=== PATIENT | male | born 1950 | race Hispanic/Latino ===

== ENCOUNTER → 2018-03-25 | Outpatient (CLI) | payer OTHER ==
--- NOTE | 2018-03-26 07:33 | Diagnostic Imaging Report ---
PROCEDURE: Frontal and lateral views of the chest. COMPARISON: None. INDICATIONS: CHEST PAIN, PLEURISY FINDINGS: Lines/tubes: None. Lungs: The lungs are well inflated and clear. There is no evidence of pneumonia or pulmonary edema. Pleura: There is no pleural effusion or pneumothorax. Heart and mediastinum: The heart and the mediastinum are normal. Bones: No acute bony abnormality. Bilateral rotator cuff anchor sutures. IMPRESSION: No acute cardiopulmonary disease. Dictated by: Tan Swartz M.D. on 03/25/2018 at 16:58 Electronically approved by: Tan Swartz M.D. on 03/25/2018 at 16:58
== END ==
LOC: RAD 15:48
PROVIDERS: ATTEND Family Medicine
DX: R07.89 Other chest pain (principal); R09.1 Pleurisy
CPT/HCPCS: 71046

== ENCOUNTER 2020-08-31 11:18 | Emergency (ER) | payer MEDICARE ==
[~2020-08-31] VITALS: Ht 175.3 cm; Wt 81.2 kg
[2020-08-31 11:45] VITALS: BP 134/84
== END 2020-08-31 11:47 | disposition home or self-care (01) ==
LOC: ER 11:39
DX: U07.1 COVID-19 (principal); I10 Essential (primary) hypertension; E11.9 Type 2 diabetes mellitus without complications; E78.5 Hyperlipidemia, unspecified; K21.9 Gastro-esophageal reflux disease without esophagitis
CPT/HCPCS: 99283

== ENCOUNTER 2020-09-02 13:01 | Emergency (ER) | payer MEDICARE ==
[~2020-09-02] VITALS: Ht 175.3 cm; Wt 81.2 kg
[2020-09-02 14:14] VITALS: BP 136/72
== END 2020-09-02 13:50 | disposition home or self-care (01) ==
LOC: ER 13:21
DX: U07.1 COVID-19 (principal); R42 Dizziness and giddiness; I10 Essential (primary) hypertension; E11.9 Type 2 diabetes mellitus without complications; E78.5 Hyperlipidemia, unspecified; K21.9 Gastro-esophageal reflux disease without esophagitis
CPT/HCPCS: 99281

== ENCOUNTER → 2020-09-17 | Outpatient (CLI) | payer MEDICARE | LOC: RAD 11:04 | PROVIDERS: ATTEND Family Medicine | DX: J40 Bronchitis, not specified as acute or chronic (principal) | CPT/HCPCS: 71046 ==

== ENCOUNTER 2021-05-09 05:54 | Inpatient (IN) | payer MEDICARE ==
[2021-05-06 14:33] LABS: BASOPHILS % 0.4 % (0.0-1.0); EOSINOPHILS # (AUTO) 0.1 (0.0-0.4); EOSINOPHILS % 0.9 % (0.0-6.0); HEMATOCRIT 40.6 % (38.2-49.6); HEMOGLOBIN 13.4 g/dL (14.0-18.0); LYMPHOCYTES # (AUTO) 1.7 (1.0-3.2); LYMPHOCYTES % 22.1 % (18.0-39.1); MONOCYTES # (AUTO) 0.6 (0.2-0.8); MONOCYTES % 8.1 % (4.4-11.3); NEUTROPHILS # (AUTO) 5.4 (2.1-6.9); NEUTROPHILS % 68.2 % (38.7-80.0); PLATELET COUNT 151 x10e3/uL (140-360); RED BLOOD COUNT 4.32 x10e6/uL (4.3-5.7); RED CELL DISTRIBUTION WIDTH 13.3 % (11.7-14.4)
[2021-05-06 14:56] LABS: ANION GAP 17.9 mmol/L (8-16); CALCIUM 9.6 mg/dL (8.4-10.2); CREATININE, SERUM 1.39 mg/dL (0.72-1.25); POTASSIUM 3.9 mmol/L (3.5-5.1)
[~2021-05-09] VITALS: Ht 175.3 cm; Wt 84.8 kg
[~2021-05-09 05:54] MED LIST: ASPIRIN81 MG PO; CARDIZEM CD120 MG PO; CEFTRIAXONE 1 GM VIAL ONE; FINASTERIDE5 MG PO; FLOMAX0.4 MG PO; GENTAMICIN 80MG/NS 100 ML 200 ML IV ONE; GLIPIZIDE ER5 MG PO; LOSARTAN POTAS100 MG PO; METFORMIN HCL500 MG PO; OMEPRAZOLE40 MG PO; SIMVASTATIN20 MG PO; SODIUM CHLORIDE 0.9% 1000ML 1,000 ML ONE; SODIUM CHLORIDE 0.9% 50ML 50 ML ONE; TERAZOSIN HCL5 MG PO
[2021-05-09] MEDS ORDERED: DEXTROSE 5% 250ML 250 ML IV ONE (06:12)
[2021-05-09] MEDS ORDERED: B&O 60MG R/S 60 MG SUPP PR ONE (06:53)
[2021-05-09] MEDS ORDERED: IOPAMIDOL 300MG/ML 50ML INFUS..BTL IV ONE (06:54)
[2021-05-09] MEDS ORDERED: ACETAMINOPHEN/CODEINE 300MG - 30MG TAB PO PRN (08:45)
[2021-05-09] MEDS ORDERED: DIPHENHYDRAMINE HCL 25 MG CAP PO PRN (08:45)
[2021-05-09] MEDS ORDERED: ONDANSETRON HCL INJ 2MG/ML 2ML 2 MG/ML VIAL IV PRN (08:45)
[2021-05-09] MEDS ORDERED: FENTANYL CITRATE/PF 100MCG/2 ML INJ ONE ×3 (08:59→12:18)
[2021-05-09 09:09] LABS: BASOPHILS % 0.7 % (0.0-1.0); EOSINOPHILS # (AUTO) 0.1 (0.0-0.4); EOSINOPHILS % 2.7 % (0.0-6.0); HEMATOCRIT 41.2 % (38.2-49.6); HEMOGLOBIN 13.8 g/dL (14.0-18.0); LYMPHOCYTES # (AUTO) 1.5 (1.0-3.2); LYMPHOCYTES % 33.2 % (18.0-39.1); MEAN CORPUSCULAR HEMOGLOBIN 31.4 pg (28-32); MEAN CORPUSCULAR HGB CONC 33.5 g/dL (31-35); MEAN CORPUSCULAR VOLUME 93.6 fL (81-99); MONOCYTES # (AUTO) 0.3 (0.2-0.8); MONOCYTES % 7.7 % (4.4-11.3); NEUTROPHILS # (AUTO) 2.4 (2.1-6.9); PLATELET COUNT 137 x10e3/uL (140-360); RED CELL DISTRIBUTION WIDTH 13.3 % (11.7-14.4)
[2021-05-09 09:17] LABS: CALCIUM 8.8 mg/dL (8.4-10.2); CREATININE, SERUM 1.26 mg/dL (0.72-1.25)
[2021-05-09 09:46] VITALS: BP 124/64
[2021-05-09] MEDS ORDERED: CLONIDINE HCL 0.1 MG TAB PO PRN (10:00)
[2021-05-09] MEDS ORDERED: DEXTROSE 50% SYRINGE 50 ML IV PRN (10:30)
[2021-05-09] MEDS: SOD CHL 0.45%/POT CHL 20MEQ 1,000 ML IV SCH ×4 (10:36→22:42)
[2021-05-09] MEDS: INSULIN LISPRO 100 UNIT/1 ML 3ML VIAL SQ SCH ×3 (11:30→22:30)
[2021-05-09] MEDS ORDERED: MIDAZOLAM HCL 2 MG/2 ML VIAL ONE (12:18)
[2021-05-09] MEDS ORDERED: POVIDONE IODINE 0.05% 0.05 % ML PO ONE (12:44)
[2021-05-09] MEDS ORDERED: SEVOFLURANE INHAL SOLN 250 ML PEN BTL ONE (12:44)
[2021-05-09] MEDS ORDERED: PROPOFOL IV EMULSION 10 MG/ML 20 ML VIAL ONE (12:44)
[2021-05-09] MEDS ORDERED: ATROPINE SULFATE 1 MG/ML VIAL ONE (12:44)
[2021-05-09] MEDS ORDERED: LIDOCAINE HCL 2% LOCAL INJ 5 ML SDV VIAL INJ ONE (12:44)
[2021-05-09] MEDS ORDERED: DEXAMETHASONE SOD PHOS INJ 4 MG/ML VIAL ONE (12:44)
[2021-05-09] MEDS ORDERED: ONDANSETRON HCL INJ 2MG/ML 2ML 2 MG/ML VIAL ONE (12:44)
[2021-05-09] MEDS: DOCUSATE SODIUM 100 MG CAP PO SCH ×2 (13:28→17:46)
[2021-05-09 14:51] VITALS: BP 105/60
[2021-05-09] MEDS: B&O 60MG R/S 60 MG SUPP PR PRN ×2 (17:13→17:45)
[2021-05-09] MEDS: METFORMIN HCL 500 MG TAB PO SCH (17:46)
[2021-05-09] MEDS: MORPHINE SULFATE INJ 2 MG/ML SYR IV PRN (19:10)
[2021-05-09 20:00] VITALS: BP 116/54
[2021-05-09 20:30] VITALS: BP 116/54
[2021-05-10] VITALS (8 sets, daily range): BP systolic 90–121; BP diastolic 43–54
[2021-05-10 06:07] LABS: BASOPHILS % 0.2 % (0.0-1.0); EOSINOPHILS % 0.2 % (0.0-6.0); HEMATOCRIT 31.7 % (38.2-49.6); HEMOGLOBIN 10.5 g/dL (14.0-18.0); LYMPHOCYTES # (AUTO) 1.2 (1.0-3.2); LYMPHOCYTES % 10.2 % (18.0-39.1); MEAN CORPUSCULAR HEMOGLOBIN 31.3 pg (28-32); MEAN CORPUSCULAR HGB CONC 33.1 g/dL (31-35); MEAN CORPUSCULAR VOLUME 94.6 fL (81-99); MONOCYTES # (AUTO) 0.9 (0.2-0.8); MONOCYTES % 7.8 % (4.4-11.3); NEUTROPHILS # (AUTO) 9.8 (2.1-6.9); NEUTROPHILS % 81.3 % (38.7-80.0); PLATELET COUNT 135 x10e3/uL (140-360); RED BLOOD COUNT 3.35 x10e6/uL (4.3-5.7); RED CELL DISTRIBUTION WIDTH 13.2 % (11.7-14.4)
[2021-05-10 06:22] LABS: ANION GAP 10.4 mmol/L (8-16); CALCIUM 8.7 mg/dL (8.4-10.2); CREATININE, SERUM 0.95 mg/dL (0.72-1.25); POTASSIUM 4.4 mmol/L (3.5-5.1)
[2021-05-10] MEDS: INSULIN LISPRO 100 UNIT/1 ML 3ML VIAL SQ SCH ×4 (07:30→19:58)
[2021-05-10] MEDS: GLIPIZIDE 2.5 MG TABCR PO SCH (08:00)
[2021-05-10] MEDS: METFORMIN HCL 500 MG TAB PO SCH ×2 (08:00→17:15)
[2021-05-10] MEDS: SOD CHL 0.45%/POT CHL 20MEQ 1,000 ML IV SCH ×3 (09:11→20:45)
[2021-05-10] MEDS: DOCUSATE SODIUM 100 MG CAP PO SCH ×2 (09:11→17:15)
[2021-05-10] MEDS: CEFTRIAXONE 1 GM in SODIUM CHLORIDE 0.9% 50ML 50 ML IV SCH (09:11)
[2021-05-10] MEDS: PHENAZOPYRIDINE HCL 100 MG TAB PO PRN (13:01)
[2021-05-10] MEDS: B&O 60MG R/S 60 MG SUPP PR PRN (20:45)
[2021-05-10] MEDS: MORPHINE SULFATE INJ 2 MG/ML SYR IV PRN (23:10)
[2021-05-11] VITALS: BP 118/52
[2021-05-11] MEDS: PHENAZOPYRIDINE HCL 100 MG TAB PO PRN ×2 (00:33→08:57)
[2021-05-11 04:00] VITALS: BP 101/51
[2021-05-11 05:13] LABS: BASOPHILS % 0.1 % (0.0-1.0); EOSINOPHILS # (AUTO) 0.1 (0.0-0.4); EOSINOPHILS % 0.5 % (0.0-6.0); HEMATOCRIT 29.2 % (38.2-49.6); HEMOGLOBIN 9.7 g/dL (14.0-18.0); MEAN CORPUSCULAR HEMOGLOBIN 31.3 pg (28-32); MEAN CORPUSCULAR HGB CONC 33.2 g/dL (31-35); MEAN CORPUSCULAR VOLUME 94.2 fL (81-99); MONOCYTES # (AUTO) 0.8 (0.2-0.8); MONOCYTES % 7.7 % (4.4-11.3); NEUTROPHILS # (AUTO) 7.3 (2.1-6.9); NEUTROPHILS % 71.2 % (38.7-80.0); PLATELET COUNT 108 x10e3/uL (140-360); RED CELL DISTRIBUTION WIDTH 13.6 % (11.7-14.4)
[2021-05-11] MEDS: MORPHINE SULFATE INJ 2 MG/ML SYR IV PRN (05:17)
[2021-05-11 05:34] LABS: CALCIUM 8.3 mg/dL (8.4-10.2); CREATININE, SERUM 0.93 mg/dL (0.72-1.25)
[2021-05-11] MEDS: INSULIN LISPRO 100 UNIT/1 ML 3ML VIAL SQ SCH ×3 (07:30→17:26)
[2021-05-11] MEDS: METFORMIN HCL 500 MG TAB PO SCH ×2 (08:00→17:00)
[2021-05-11] MEDS: GLIPIZIDE 2.5 MG TABCR PO SCH (08:00)
[2021-05-11 08:12] VITALS: BP 114/55
[2021-05-11] MEDS: SOD CHL 0.45%/POT CHL 20MEQ 1,000 ML IV SCH ×2 (08:45→16:45)
[2021-05-11] MEDS: DOCUSATE SODIUM 100 MG CAP PO SCH ×2 (09:00→17:00)
[2021-05-11] MEDS: CEFTRIAXONE 1 GM in SODIUM CHLORIDE 0.9% 50ML 50 ML IV SCH (09:00)
[2021-05-11 09:10] VITALS: BP 114/55
[2021-05-11 11:36] VITALS: BP 105/52
[2021-05-11 15:15] VITALS: BP 102/73
[2021-05-11] MEDS ORDERED: TYLENOL 3 PO (18:51)
[2021-05-11] MEDS ORDERED: LEVOFLOXACIN250 MG PO (18:51)
== END 2021-05-11 19:31 | disposition home or self-care (01) | DRG 713 ==
LOC: OR 05:54 → PACU V 08:58 → MED/SURG 09:36
PROVIDERS: ADMIT Internal Medicine; ATTEND Internal Medicine
PROC: BT141ZZ Fluoroscopy of Kidneys, Ureters and Bladder using Low Osmolar Contrast (ICD-10-PCS; principal; 2021-05-09 07:00)
PROC: 0V508ZZ Destruction of Prostate, Via Natural or Artificial Opening Endoscopic (ICD-10-PCS; 2021-05-09 07:00)
DX: N40.1 Benign prostatic hyperplasia with lower urinary tract symptoms (principal); N13.8 Other obstructive and reflux uropathy; N13.30 Unspecified hydronephrosis; N17.9 Acute kidney failure, unspecified; E11.9 Type 2 diabetes mellitus without complications; I10 Essential (primary) hypertension; R39.14 Feeling of incomplete bladder emptying; K21.9 Gastro-esophageal reflux disease without esophagitis; Z86.16 Personal history of COVID-19
CPT/HCPCS: 36415; 71046; 74420; 80048; 82948; 83735; 85025; 93005; C1758; J0461; J0696; J1100; J1580; J2001; J2250; J2270; J2405; J3010; J7030; J7070

== ENCOUNTER 2023-02-23 12:17 | Observation (INO) | payer MEDICARE, OTHER ==
[~2023-02-23] VITALS: Ht 175.3 cm; Wt 79.8 kg
[~2023-02-23 12:17] MED LIST changes: +BIOTIN800 MCG PO; +CALCIUM ACETAT667 MG PO; +CANDICIDAL CAP1 EACH PO; -CEFTRIAXONE 1 GM VIAL ONE; -GENTAMICIN 80MG/NS 100 ML 200 ML IV ONE; +GINKGO BILOBA125 MG PO; +GLUCOSAMIN-CHO1 EACH PO; +LEVOFLOXACIN250 MG PO; +LOSARTAN-HCTZ1 EAC2 PO; +NAMENDA10 MG PO; +OMEGA 3 FISH O1 EACH PO; +OXYBUTYNIN CHLOR5 MG PO; +SAW PALMETTO 1160 MG PO; -SODIUM CHLORIDE 0.9% 1000ML 1,000 ML ONE; -SODIUM CHLORIDE 0.9% 50ML 50 ML ONE; +TYLENOL 3 PO; +VITAMIN B-121000 MCG PO; +VITAMIN C1000 MG PO; +VITAMIN D3 COM1 EACH PO; +VITAMIN E400 UNI1 PO; +[UNRECOGNIZED DRUG - OTHER] PO
[2023-02-23 12:59] LABS: BASOPHILS % 0.7 % (0.0-1.0); EOSINOPHILS % 0.4 % (0.0-6.0); HEMATOCRIT 39.9 % (38.2-49.6); HEMOGLOBIN 13.3 g/dL (14.0-18.0); LYMPHOCYTES # (AUTO) 0.9 (1.0-3.2); LYMPHOCYTES % 19.8 % (18.0-39.1); MEAN CORPUSCULAR HEMOGLOBIN 31.8 pg (28-32); MEAN CORPUSCULAR HGB CONC 33.3 g/dL (31-35); MEAN CORPUSCULAR VOLUME 95.5 fL (81-99); MONOCYTES # (AUTO) 0.4 (0.2-0.8); NEUTROPHILS # (AUTO) 3.2 (2.1-6.9); NEUTROPHILS % 69.7 % (38.7-80.0); PLATELET COUNT 127 x10e3/uL (140-360); RED BLOOD COUNT 4.18 x10e6/uL (4.3-5.7); RED CELL DISTRIBUTION WIDTH 12.6 % (11.7-14.4)
[2023-02-23 13:04] LABS: ALBUMIN 4.1 g/dL (3.5-5.0); ALBUMIN/GLOBULIN RATIO 1.4 (0.8-2.0); ANION GAP 14.4 mmol/L (8-16); CALCIUM 9.1 mg/dL (8.4-10.2); CREATININE, SERUM 1.04 mg/dL (0.72-1.25); POTASSIUM 3.4 mmol/L (3.5-5.1)
[2023-02-23] MEDS ORDERED: ONDANSETRON HCL INJ 2MG/ML 2ML 2 MG/ML VIAL IV PRN (14:00)
[2023-02-23] MEDS ORDERED: SODIUM CHLORIDE FLUSH 10 ML SYR INJ PRN (14:00)
[2023-02-23] MEDS ORDERED: DEXTROSE 50% SYRINGE 50 ML IV PRN (15:15)
[2023-02-23 15:40] LABS: CLARITY,URINE CLEAR (CLEAR); COLOR,URINE YELLOW (YELLOW); KETONES,URINE TRACE (NEGATIVE); LEUKOCYTE ESTERASE ,URINE NEGATIVE (NEGATIVE); NITRITE,URINE NEGATIVE (NEGATIVE); PROTEIN,URINE DIPSTICK NEGATIVE (NEGATIVE); URINE UROBILINOGEN 0.2 mg/dL (0.2 - 1)
[2023-02-23] MEDS ORDERED: ACETAMINOPHEN 325 MG TAB PO PRN (15:45)
[2023-02-23] MEDS ORDERED: POTASSIUM BICARBONATE/CIT AC 20 MEQ TABLET.EFF PO ONE (16:00)
[2023-02-23] MEDS: METFORMIN HCL 500 MG TAB PO SCH (16:42)
[2023-02-23] MEDS: OXYBUTYNIN CHLORIDE 5 MG TAB PO SCH (17:00)
[2023-02-23] MEDS: INSULIN REGULAR, HUMAN 100 UNIT/1 ML SQ SCH ×2 (17:02→21:00)
[2023-02-23 20:40] VITALS: BP 141/63
[2023-02-23 20:43] VITALS: BP 136/71
[2023-02-23 21:00] VITALS: BP 136/71
[2023-02-23] MEDS ORDERED: FINASTERIDE 5 MG TAB PO SCH (21:00)
[2023-02-23] MEDS ORDERED: TERAZOSIN HCL 5 MG CAP PO SCH (21:00)
[2023-02-23] MEDS ORDERED: SIMVASTATIN 20 MG TAB PO SCH (21:00)
[2023-02-23] MEDS ORDERED: MEMANTINE 10 MG TAB PO SCH (21:00)
[2023-02-24] VITALS (10 sets, daily range): BP systolic 123–142; BP diastolic 55–82
[2023-02-24] MEDS: INSULIN REGULAR, HUMAN 100 UNIT/1 ML SQ SCH ×3 (07:30→16:30)
[2023-02-24] MEDS ORDERED: PANTOPRAZOLE SOD 40 MG TABEC PO SCH (07:30)
[2023-02-24] MEDS: METFORMIN HCL 500 MG TAB PO SCH (08:00)
[2023-02-24] MEDS: OXYBUTYNIN CHLORIDE 5 MG TAB PO SCH ×2 (08:47→17:28)
[2023-02-24] MEDS ORDERED: ASCORBIC ACID 500 MG TAB PO SCH (09:00)
[2023-02-24 09:10] LABS: BASOPHILS % 0.7 % (0.0-1.0); EOSINOPHILS # (AUTO) 0.1 (0.0-0.4); EOSINOPHILS % 1.3 % (0.0-6.0); HEMATOCRIT 37.2 % (38.2-49.6); HEMOGLOBIN 12.7 g/dL (14.0-18.0); LYMPHOCYTES # (AUTO) 1.2 (1.0-3.2); LYMPHOCYTES % 26.5 % (18.0-39.1); MEAN CORPUSCULAR HEMOGLOBIN 32.2 pg (28-32); MEAN CORPUSCULAR HGB CONC 34.1 g/dL (31-35); MEAN CORPUSCULAR VOLUME 94.4 fL (81-99); MONOCYTES # (AUTO) 0.4 (0.2-0.8); MONOCYTES % 9.2 % (4.4-11.3); NEUTROPHILS # (AUTO) 2.8 (2.1-6.9); NEUTROPHILS % 62.1 % (38.7-80.0); PLATELET COUNT 128 x10e3/uL (140-360); RED BLOOD COUNT 3.94 x10e6/uL (4.3-5.7); RED CELL DISTRIBUTION WIDTH 12.4 % (11.7-14.4)
[2023-02-24 09:26] LABS: ANION GAP 11.6 mmol/L (8-16); CALCIUM 9.1 mg/dL (8.4-10.2); CREATININE, SERUM 1.1 mg/dL (0.72-1.25); POTASSIUM 3.6 mmol/L (3.5-5.1)
[2023-02-24 09:34] LABS: CHOL/HDL RATIO 2.8 (3.9-4.7)
[2023-02-24 09:43] LABS: THYROID STIMULATING HORMONE 0.556 uIU/mL (0.350-4.940)
== END 2023-02-24 20:50 | disposition home or self-care (01) ==
LOC: ER 12:26 → ERHOLD 13:53 → MED/SURG 20:16
PROVIDERS: ADMIT Internal Medicine; ATTEND Internal Medicine
DX: R55 Syncope and collapse (principal); E11.649 Type 2 diabetes mellitus with hypoglycemia without coma; R56.9 Unspecified convulsions; R04.0 Epistaxis; I10 Essential (primary) hypertension; E11.9 Type 2 diabetes mellitus without complications; G30.9 Alzheimer's disease, unspecified; F02.80 Dementia in other diseases classified elsewhere, unspecified severity, without behavioral disturbance, psychotic disturbance, mood disturbance, and anxiety; E78.00 Pure hypercholesterolemia, unspecified; N40.0 Benign prostatic hyperplasia without lower urinary tract symptoms; I34.0 Nonrheumatic mitral (valve) insufficiency; I07.1 Rheumatic tricuspid insufficiency; K21.9 Gastro-esophageal reflux disease without esophagitis; V44.0XXA Car driver injured in collision with heavy transport vehicle or bus in nontraffic accident, initial encounter; Y92.524 Gas station as the place of occurrence of the external cause; Z20.822 Contact with and (suspected) exposure to COVID-19; Z79.84 Long term (current) use of oral hypoglycemic drugs; Z79.899 Other long term (current) drug therapy; Z81.8 Family history of other mental and behavioral disorders; Z82.49 Family history of ischemic heart disease and other diseases of the circulatory system; Z82.41 Family history of sudden cardiac death; Z82.3 Family history of stroke; Z83.3 Family history of diabetes mellitus
CPT/HCPCS: 36415 ×2; 70450; 70486; 71045; 72125; 80048; 80053; 80061; 81001; 82948 ×2; 83036; 84443; 84484; 85025 ×2; 93005; 93306; 93880; 95819; 99284; G0378 ×2; S0164; U0002

== ENCOUNTER 2023-02-26 05:42 | Inpatient (IN) | payer MEDICARE ==
[2023-02-22 13:44] LABS: BASOPHILS % 0.6 % (0.0-1.0); EOSINOPHILS # (AUTO) 0.1 (0.0-0.4); EOSINOPHILS % 1.3 % (0.0-6.0); HEMATOCRIT 39.3 % (38.2-49.6); HEMOGLOBIN 13.2 g/dL (14.0-18.0); LYMPHOCYTES # (AUTO) 1.8 (1.0-3.2); MEAN CORPUSCULAR HEMOGLOBIN 32.3 pg (28-32); MEAN CORPUSCULAR HGB CONC 33.6 g/dL (31-35); MEAN CORPUSCULAR VOLUME 96.1 fL (81-99); MONOCYTES # (AUTO) 0.5 (0.2-0.8); MONOCYTES % 9.1 % (4.4-11.3); NEUTROPHILS # (AUTO) 2.8 (2.1-6.9); PLATELET COUNT 130 x10e3/uL (140-360); RED BLOOD COUNT 4.09 x10e6/uL (4.3-5.7); RED CELL DISTRIBUTION WIDTH 12.6 % (11.7-14.4)
[2023-02-22 14:05] LABS: CREATININE, SERUM 0.99 mg/dL (0.72-1.25)
[2023-02-26] VITALS (8 sets, daily range): BP systolic 105–119; BP diastolic 43–63; PULSE 53–56; RESP 17–19; TEMP 95.5–98.5; O2SAT 96–100
[~2023-02-26] VITALS: Ht 175.3 cm; Wt 78.5 kg
[2023-02-26] MEDS ORDERED: CEFTRIAXONE 1 GM VIAL ONE (06:10)
[2023-02-26] MEDS ORDERED: GENTAMICIN 80MG/NS 100 ML 200 ML IV ONE (06:10)
[2023-02-26] MEDS ORDERED: SODIUM CHLORIDE 0.9% 1000ML 1,000 ML ONE (06:10)
[2023-02-26] MEDS ORDERED: IOPAMIDOL 610MG/1ML 300 MG/ML VIAL IV ONE (06:45)
[2023-02-26] MEDS: FENTANYL CITRATE/PF 100MCG/2 ML INJ ONE ×4 (08:27→08:52)
[2023-02-26] MEDS ORDERED: ACETAMINOPHEN 1000 MG/100 ML 100 ML IV ONE (08:30)
[2023-02-26] MEDS ORDERED: DIPHENHYDRAMINE HCL 25 MG CAP PO PRN (08:45)
[2023-02-26] MEDS ORDERED: ACETAMINOPHEN 1000 MG/100 ML IV PRN (08:45)
[2023-02-26] MEDS ORDERED: ACETAMINOPHEN/CODEINE 300MG - 30MG TAB PO PRN (08:45)
[2023-02-26] MEDS ORDERED: ONDANSETRON HCL INJ 2MG/ML 2ML 2 MG/ML VIAL IV PRN (08:45)
[2023-02-26 08:56] LABS: BASOPHILS % 0.3 % (0.0-1.0); EOSINOPHILS # (AUTO) 0.1 (0.0-0.4); HEMATOCRIT 35.8 % (38.2-49.6); HEMOGLOBIN 12.1 g/dL (14.0-18.0); LYMPHOCYTES # (AUTO) 1.9 (1.0-3.2); LYMPHOCYTES % 30.2 % (18.0-39.1); MEAN CORPUSCULAR HEMOGLOBIN 32.3 pg (28-32); MEAN CORPUSCULAR HGB CONC 33.8 g/dL (31-35); MEAN CORPUSCULAR VOLUME 95.5 fL (81-99); MONOCYTES # (AUTO) 0.5 (0.2-0.8); MONOCYTES % 7.7 % (4.4-11.3); NEUTROPHILS # (AUTO) 3.7 (2.1-6.9); NEUTROPHILS % 60.5 % (38.7-80.0); PLATELET COUNT 120 x10e3/uL (140-360); RED BLOOD COUNT 3.75 x10e6/uL (4.3-5.7); RED CELL DISTRIBUTION WIDTH 12.8 % (11.7-14.4)
[2023-02-26] MEDS: DOCUSATE SODIUM 100 MG CAP PO SCH ×2 (09:00→16:29)
[2023-02-26 09:19] LABS: ANION GAP 10.8 mmol/L (8-16); CALCIUM 8.3 mg/dL (8.4-10.2); CREATININE, SERUM 0.91 mg/dL (0.72-1.25); POTASSIUM 3.8 mmol/L (3.5-5.1)
[2023-02-26] MEDS ORDERED: HYDROMORPHONE 1MG/1ML INJ ONE (09:21)
[2023-02-26] MEDS ORDERED: MIDAZOLAM HCL 2 MG/2 ML VIAL ONE (12:02)
[2023-02-26] MEDS ORDERED: FENTANYL CITRATE/PF 100MCG/2 ML INJ ONE (12:02)
[2023-02-26] MEDS ORDERED: ONDANSETRON HCL INJ 2MG/ML 2ML 2 MG/ML VIAL ONE (12:27)
[2023-02-26] MEDS ORDERED: POVIDONE IODINE 0.05% 0.05 % ML PO ONE (12:27)
[2023-02-26] MEDS ORDERED: SEVOFLURANE INHAL SOLN 250 ML PEN BTL ONE (12:27)
[2023-02-26] MEDS ORDERED: EPHEDRINE SULFATE INJ 50 MG/ML VIAL ONE (12:27)
[2023-02-26] MEDS ORDERED: PROPOFOL IV EMULSION 10 MG/ML 20 ML VIAL ONE (12:27)
[2023-02-26] MEDS ORDERED: LIDOCAINE HCL 2% LOCAL INJ 5 ML SDV VIAL INJ ONE (12:27)
[2023-02-26] MEDS: SODIUM CHLORIDE 0.9% 1000ML 1,000 ML IV SCH ×2 (12:47→19:28)
[2023-02-26] MEDS: OXYBUTYNIN CHLORIDE 5 MG TAB PO SCH (16:28)
[2023-02-26] MEDS: METFORMIN HCL 500 MG TAB PO SCH (16:29)
[2023-02-26] MEDS: PHENAZOPYRIDINE HCL 100 MG TAB PO PRN (16:30)
[2023-02-26] MEDS: MEMANTINE 10 MG TAB PO SCH (21:00)
[2023-02-26] MEDS: SIMVASTATIN 20 MG TAB PO SCH (21:19)
[2023-02-26] MEDS: TERAZOSIN HCL 5 MG CAP PO SCH (21:20)
[2023-02-27] VITALS (8 sets, daily range): BP systolic 120–135; BP diastolic 61–73; PULSE 54–68; RESP 16–19; TEMP 97.7–99.2; O2SAT 96–99
[2023-02-27 06:18] LABS: BASOPHILS % 0.3 % (0.0-1.0); EOSINOPHILS # (AUTO) 0.1 (0.0-0.4); EOSINOPHILS % 1.1 % (0.0-6.0); HEMATOCRIT 36.6 % (38.2-49.6); HEMOGLOBIN 12.3 g/dL (14.0-18.0); LYMPHOCYTES # (AUTO) 1.3 (1.0-3.2); LYMPHOCYTES % 21.2 % (18.0-39.1); MEAN CORPUSCULAR HEMOGLOBIN 31.8 pg (28-32); MEAN CORPUSCULAR HGB CONC 33.6 g/dL (31-35); MEAN CORPUSCULAR VOLUME 94.6 fL (81-99); MONOCYTES # (AUTO) 0.5 (0.2-0.8); MONOCYTES % 8.4 % (4.4-11.3); NEUTROPHILS # (AUTO) 4.2 (2.1-6.9); NEUTROPHILS % 68.7 % (38.7-80.0); PLATELET COUNT 115 x10e3/uL (140-360); RED BLOOD COUNT 3.87 x10e6/uL (4.3-5.7); RED CELL DISTRIBUTION WIDTH 12.6 % (11.7-14.4)
[2023-02-27] MEDS: SODIUM CHLORIDE 0.9% 1000ML 1,000 ML IV SCH ×3 (06:32→18:19)
[2023-02-27] MEDS: PHENAZOPYRIDINE HCL 100 MG TAB PO PRN (06:36)
[2023-02-27 06:42] LABS: CALCIUM 8.5 mg/dL (8.4-10.2); CREATININE, SERUM 0.98 mg/dL (0.72-1.25)
[2023-02-27] MEDS: METFORMIN HCL 500 MG TAB PO SCH ×2 (08:00→16:20)
[2023-02-27] MEDS: PANTOPRAZOLE SOD 40 MG TABEC PO SCH (09:22)
[2023-02-27] MEDS: DOCUSATE SODIUM 100 MG CAP PO SCH ×2 (09:23→16:15)
[2023-02-27] MEDS: OXYBUTYNIN CHLORIDE 5 MG TAB PO SCH ×2 (09:23→16:15)
[2023-02-27] MEDS: MEMANTINE 10 MG TAB PO SCH ×2 (09:24→20:58)
[2023-02-27] MEDS: TERAZOSIN HCL 5 MG CAP PO SCH (20:58)
[2023-02-27] MEDS: SIMVASTATIN 20 MG TAB PO SCH (20:58)
[2023-02-28] MEDS: SODIUM CHLORIDE 0.9% 1000ML 1,000 ML IV SCH ×2 (00:30→10:30)
[2023-02-28 01:18] VITALS: BP 119/74; PULSE 56; RESP 18; TEMP 98.3; O2SAT 96
[2023-02-28 04:56] VITALS: BP 127/66; PULSE 53; RESP 18; TEMP 97.4; O2SAT 97
[2023-02-28 06:05] LABS: BASOPHILS % 0.5 % (0.0-1.0); EOSINOPHILS # (AUTO) 0.1 (0.0-0.4); EOSINOPHILS % 1.9 % (0.0-6.0); HEMATOCRIT 37.9 % (38.2-49.6); HEMOGLOBIN 12.9 g/dL (14.0-18.0); LYMPHOCYTES # (AUTO) 1.5 (1.0-3.2); LYMPHOCYTES % 23.3 % (18.0-39.1); MEAN CORPUSCULAR HEMOGLOBIN 32.2 pg (28-32); MEAN CORPUSCULAR VOLUME 94.5 fL (81-99); MONOCYTES # (AUTO) 0.6 (0.2-0.8); MONOCYTES % 9.4 % (4.4-11.3); NEUTROPHILS # (AUTO) 4.2 (2.1-6.9); NEUTROPHILS % 64.7 % (38.7-80.0); PLATELET COUNT 117 x10e3/uL (140-360); RED BLOOD COUNT 4.01 x10e6/uL (4.3-5.7); RED CELL DISTRIBUTION WIDTH 12.3 % (11.7-14.4)
[2023-02-28 06:34] LABS: ANION GAP 9.8 mmol/L (8-16); CALCIUM 8.8 mg/dL (8.4-10.2); CREATININE, SERUM 1.03 mg/dL (0.72-1.25); POTASSIUM 3.8 mmol/L (3.5-5.1)
[2023-02-28 08:13] VITALS: BP 141/73; PULSE 55; RESP 20; TEMP 98.3; O2SAT 97
[2023-02-28 09:00] VITALS: BP 114/88; PULSE 80; RESP 20; TEMP 98.3; O2SAT 100
[2023-02-28] MEDS: METFORMIN HCL 500 MG TAB PO SCH (09:14)
[2023-02-28] MEDS: OXYBUTYNIN CHLORIDE 5 MG TAB PO SCH (09:15)
[2023-02-28] MEDS: DOCUSATE SODIUM 100 MG CAP PO SCH (09:16)
[2023-02-28] MEDS: MEMANTINE 10 MG TAB PO SCH (09:16)
[2023-02-28] MEDS: PANTOPRAZOLE SOD 40 MG TABEC PO SCH (09:18)
[2023-02-28 12:35] VITALS: BP 144/65; PULSE 58; RESP 18; TEMP 98.4; O2SAT 97
[2023-02-28] MEDS ORDERED: ONDANSETRON HCL 4 MG ORAL DISINTEGRATING TAB PO PRN (14:30)
[2023-02-28 16:00] VITALS: BP 159/71; PULSE 54; RESP 20; TEMP 98.1; O2SAT 98
[2023-02-28] MEDS ORDERED: LEVOFLOXACIN250 MG PO (16:35)
[2023-02-28] MEDS ORDERED: tylenol 3 PO (16:36)
[2023-02-28] MEDS ORDERED: [UNRECOGNIZED DRUG - OTHER] (16:36)
== END 2023-02-28 17:15 | disposition home or self-care (01) | DRG 713 ==
LOC: OR 05:42 → PACU V 08:33 → UNDOADMOB 08:37 → MED/SURG3 10:47
PROVIDERS: ADMIT Internal Medicine; ATTEND Internal Medicine
PROC: 0VT08ZZ Resection of Prostate, Via Natural or Artificial Opening Endoscopic (ICD-10-PCS; principal; 2023-02-26 06:53)
PROC: 0T7D8ZZ Dilation of Urethra, Via Natural or Artificial Opening Endoscopic (ICD-10-PCS; 2023-02-26 06:53)
DX: N40.1 Benign prostatic hyperplasia with lower urinary tract symptoms (principal); N13.30 Unspecified hydronephrosis; N13.8 Other obstructive and reflux uropathy; I10 Essential (primary) hypertension; E78.5 Hyperlipidemia, unspecified; K21.9 Gastro-esophageal reflux disease without esophagitis; F03.A0 Unspecified dementia, mild, without behavioral disturbance, psychotic disturbance, mood disturbance, and anxiety; E11.649 Type 2 diabetes mellitus with hypoglycemia without coma; R33.9 Retention of urine, unspecified; Z86.16 Personal history of COVID-19; Z87.891 Personal history of nicotine dependence
CPT/HCPCS: 0223U; 36415; 71046; 74420; 80048; 82948; 83735; 85025; 88304; 88305; 93005; 94799; C1758; J0696; J1170; J1580; J2001; J2250; J2405; J7030

== ENCOUNTER → 2023-03-13 | Outpatient (CLI) | payer MEDICARE ==
[~2023-03-13] MED LIST changes: +[UNRECOGNIZED DRUG - OTHER]; +tylenol 3 PO
== END ==
LOC: MRI 12:28
PROVIDERS: ATTEND Psychiatry & Neurology Clinical Neurophysiology
DX: R41.3 Other amnesia (principal)
CPT/HCPCS: 70551